=== PATIENT | male | born 1965 | race Caucasian/White ===

== ENCOUNTER → 2018-04-04 | Day surgery (SDC) | payer OTHER ==
[~2018-04-04] MED LIST: ACEBUTOLOL HCL200 MG PO; ADDERALL XR 3030 MG PO; ALBUTEROL1.25 MG/3 NEB; ALLOPURINOL100 MG PO; ASPIR 8181 MG PO; ATORVASTATIN CA10 MG PO; BUPIVACAINE HCL 0.5% INJ 30 ML VIAL INJ ONE; CEFTRIAXONE SOD 1 GM VIAL ONE; DEXAMETHASONE SOD PHOS INJ 4 MG/ML VIAL ONE; FENTANYL CITRATE/PF 100MCG/2 ML INJ ONE; GLYCOPYRROLATE INJ 1MG/ 5 ML SYR ONE; HYDROMORPHONE 2MG/ML 2 MG/ML ML ONE; KETOROLAC TROMETHAMINE 30 MG/ML VIAL ONE; LIDOCAINE HCL 1% 30ML-PF VIAL ONE; LIDOCAINE HCL 2% LOCAL INJ 5 ML SDV VIAL INJ ONE; MICARDIS40 MG PO; MIDAZOLAM HCL 2 MG/2 ML VIAL ONE; ONDANSETRON HCL INJ 2 MG/ML VIAL ONE; PLAVIX75 MG PO; PROPOFOL IV EMULSION 10 MG/ML 20 ML VIAL ONE; SEVOFLURANE INHAL SOLN 250 ML PEN BTL ONE; SYMBICORT 16010.2 GM INH; TRINTELLIX PO; VITAMIN D5000 UNIT PO
--- NOTE | 2018-04-04 15:06 | Operative Report ---
DATE OF PROCEDURE: April 04, 2018 PREOPERATIVE DIAGNOSIS: Bilateral hydroceles. POSTOPERATIVE DIAGNOSIS: Bilateral hydroceles. OPERATION PERFORMED: Bilateral hydrocelectomy. DIETARY ASSISTANT: Dr. Shon Morales ANESTHESIA: General. INDICATIONS: Mr. Inman is a 52-year-old male who presented with bilateral scrotal swelling. Physical exam showed bilateral hydroceles and scrotal ultrasound confirmed it. DETAILS OF PROCEDURE: This patient was placed on the table in the lithotomy position and was prepped and draped in a sterile manner after satisfactory anesthesia. A longitudinal incision over the anterolateral border of the right hemiscrotum incising the skin and the dartos muscle. The tunica vaginalis was then incised and about 250 mL of hydrocele fluid was aspirated. The testicle and the spermatic cord were brought outside the scrotal sac. The tunica vaginalis was then bottle necked behind the spermatic cord and approximated continuously using 3-0 Vicryl. Hemostasis was obtained all through and was very adequate. The testicle and the spermatic cord were then delivered inside the scrotal sac. Attention was now directed to the scrotal closure and the dartos muscle was approximated continuously using 3-0 Vicryl. The skin was approximated interruptedly using 4-0 Vicryl. Attention was not directed to the left scrotal sac and longitudinal incision over the anterolateral border was done. The skin and the dartos muscle was incised. The tunica vaginalis was then incised in the same direction and about 200 mL of hydrocele fluid was recovered. Attention was now directed to the left hydrocelectomy and the tunica vaginalis was then bottle necked behind the spermatic cord and approximated continuously using 3-0 Vicryl. Hemostasis again was very adequate. Attention was not directed to the wound closure and the testicle and the spermatic cord were delivered inside the scrotal sac. The dartos muscle was approximated continuously using 3-0 Vicryl. The skin was approximated interruptedly using 4-0 Vicryl. Sterile dressing was applied. Fluffs were applied and a scrotal support placed. Discharge medication was Augmentin 500 mg one 3 times a day for one week. Ultracet tablet one every 4 hours p.r.n. and was given 40. He was instructed on keeping the ice pack on the scrotum for the next few days. He is to return to the office in about 4 weeks. Job#: [id number] GH
[2018-04-04 17:00] VITALS: BP 148/98
--- OUTSIDE RECORDS SUMMARY | 2018-04-05 17:27 | XMS REPORT | Clinical Summary ---
Author Author [facility] Address Unknown Phone Unavailable Care Team Providers Care Plant And Instrument Engineer Name Role Phone Rory Bradshaw MD PCP Allergies Active Allergy Reactions Severity Noted Date Comments Adhesive Tape-Silicones 08/23/2017 Azithromycin 10/20/2015 Other reaction(s): Angioedema Sulfa (Sulfonamide 08/23/2017 Antibiotics) Current Medications Prescription Sig. Disp. Refills Start End Date Status Date isosorbide mononitrate Take 35 mg by mouth Active (IMDUR) 30 MG 24 hr daily. tablet acebutolol (SECTRAL) 200 Take 200 mg by mouth 10/25/19 Active MG capsule daily. 17 allopurinol (ZYLOPRIM) Take 100 mg by mouth 02/18/20 Active 100 MG tablet daily. 16 clopidogrel (PLAVIX) 75 Take 75 mg by mouth 3 09/13/19 Active mg tablet daily. 17 telmisartan (MICARDIS) 40 Take 40 mg by mouth 1 10/21/19 Active MG tablet daily. 17 aspirin 81 mg chewable Chew 81 mg daily. Active tablet spironolactone Take 25 mg by mouth 3 08/01/19 Active (ALDACTONE) 25 MG tablet daily. 18 losartan (COZAAR) 50 MG every evening. 1 08/02/19 Active tablet 18 SYMBICORT 160-4.5 Inhale 2 puffs 2 (two) 11 08/05/19 Active mcg/actuation inhaler times a day. 18 atorvastatin (LIPITOR) 10 Take 10 mg by mouth 9 07/26/19 Active MG tablet nightly. 18 albuterol (ACCUNEB) 2.5 3 ML NEEDED TWICE A 3 07/27/19 Active mg /3 mL (0.083 %) DAY INHALATION 30 DAYS 18 nebulizer solution calcitriol (ROCALTROL) TAKE 1 CAPSULE BY MOUTH 3 06/30/19 Active 0.25 MCG capsule ON Monday AND Monday. isosorbide dinitrate Take 30 mg by mouth. 08/24/19 Discontin (ISORDIL) 30 MG tablet 18 ued traMADol (ULTRAM) 50 mg Take 1 tablet (50 mg 9 tablet 0 01/13/20 01/20/20 tablet total) by mouth every 6 18 18 (six) hours as needed for severe pain for up to 9 doses. Active Problems Problem Noted Date Chest pain 10/28/2016 Acute bronchitis 10/20/2015 Acute gastritis 10/20/2015 Acute upper respiratory infection 10/20/2015 Chronic kidney disease, stage III (moderate) (HCC) 10/20/2015 Colitis, enteritis, and gastroenteritis of presumed infectious origin 10/20/2015 Nausea 10/20/2015 Abnormal chest x-ray 10/20/2015 Encounters Date Type Specialty Care Team Description 02/21/2018 [facility] Benji Bland, Hydrocele of tunica Encounter MD stevens 02/14/2018 Transcribe Access Benji Bland, Hydrocele of tunica Orders MD stevens (Primary Dx) 01/11/2018 Emergency Emergency Medicine Steve Garcia MD Testicular pain, left - (Primary Dx); 01/12/2018 Hydrocele, unspecified hydrocele type 10/25/2017 Telephone Cardiovascular Elaine Shen MA 08/23/2017 Office Visit Cardiovascular Manish Cruz MD Varicose veins of leg with edema, unspecified laterality (Primary Dx); Venous insufficiency 07/31/2017 Telephone Cardiovascular Ml Mccracken MA 07/11/2017 [facility]iology Taqueria Valdes MD Peripheral venous Encounter insufficiency 07/11/2017 Ancillary Access Taqueria Valdes MD Peripheral venous Orders insufficiency 07/05/2017 Transcribe Access Taqueria Valdes MD Peripheral venous Orders insufficiency (Primary Dx) after 04/04/2017 Immunizations Name Dates Previously Given Next Due Pneumococcal Conjugate 11/01/2016 13-Valent Family History Medical History Relation Name Comments Hypertension Brother Cancer Father Circulation Problems with Father Legs Varicose Veins Father Hypertension Maternal Grandfather Cancer Mother Heart disease Mother Hypertension Mother Hypertension Sister Relation Name Status Comments Brother Father Maternal Grandfather Mother Sister Social History Tobacco Use Types Packs/Day Years Used Date Never Smoker Smokeless Tobacco: Never Used Alcohol Use Drinks/Week oz/Week Comments No Sex Assigned at Date Recorded Not on file Last Filed Vital Signs Vital Sign Reading Time Taken Blood Pressure 117/85 01/12/2018 12:53 AM CDT Pulse 79 01/12/2018 12:53 AM CDT Temperature 36.7 C (98.1 F) 01/12/2018 12:53 AM CDT Respiratory Rate 21 01/12/2018 12:53 AM CDT Oxygen Saturation 97% 01/12/2018 12:53 AM CDT Inhaled Oxygen - - Concentration Weight 96.2 kg (212 lb) 08/23/2017 2:39 PM CDT Height 177.8 cm (5' 10") 01/11/2018 8:23 PM CDT Body Mass Index 30.42 08/23/2017 2:39 PM CDT Plan of Treatment Health Maintenance Due Date Last Done Comments COLON CANCER SCREENING 10/19/2015 SHINGRIX VACCINE (#1) 10/19/2015 INFLUENZA VACCINE 01/10/2018 Implants Implanted Type Area Specialist Icu Device Expiration Model / Identifier Date Serial / Lot Device Vasclr Clsr Baln Cath 10ml Cardiovasc N/A: N/A CARDINAL 09/09/2018 [id number] / Lkng Syr 6fr 7fr [facility] / [id number] Implants [id number] Implanted: 10/31/2016 (Quantity not on file) Procedures Procedure Name Priority Date/Time Associated Diagnosis Comments US SCROTAL Routine 02/21/2018 Hydrocele of tunica Results for this 5:14 PM CDT vaginalis procedure are in the results section. US SCROTAL STAT 01/11/2018 Results for this 10:00 PM CDT procedure are in the results section. URINALYSIS SCREEN AND Routine 01/11/2018 Results for this MICROSCOPY, WITH REFLEX 8:24 PM CDT procedure are in the TO CULTURE results section. URINE CULTURE Routine 01/11/2018 Results for this 8:24 PM CDT procedure are in the results section. US DUPLEX VENOUS LOWER Routine 07/11/2017 Peripheral venous Results for this EXTREMITY REFLUX 2:19 PM WELL REACTIVATOR OPERATOR insufficiency procedure are in the BILATERAL results section. after 04/04/2017 Results * US Scrotal (02/21/2018 5:14 PM) Only the most recent of 2 results within the time period is included. Narrative Performed At EXAMINATION: Testicular ultrasound. [facility] CLINICAL HISTORY:N43.3 Hydroceleunspecified, N43.3 COMPARISON:Scrotal ultrasound 01-11-18 TECHNIQUE:Sonographic evaluation of the scrotum. Real-time B mode grayscale, Doppler spectral analysis and Doppler color flow imaging was used to assess testicular vasculature. FINDINGS: RIGHT HEMISCROTUM: The right testicle measures 4.0 x 4.1 x 2.3 cm. Testicular echogenicity is normal. No intratesticular masses are identified. There is normal color and duplex Doppler flow. The right epididymis is unremarkable. There is no evidence of varicocele. A small/moderate hydrocele is present, unchanged from the prior. The right epididymis measures 1.1 x 1.1 x 0.7 cm LEFT HEMISCROTUM: The left testicle measures 4.2 x 3.4 x 2.3 cm. Testicular echogenicity is normal. There are no intratesticular masses. There is normal color and duplex Doppler flow. A small/moderate hydrocele is present, unchanged from the prior. The left epididymis measures 2.1 x 1.0 x 1.0 cm. There is an 1.8 mm cyst and a 4.3 mm cyst Doppler blood flow is present in both testicles. IMPRESSION: Bilateral hydroceles are unchanged in size from the prior study. The right testicular appendage is not visible on the current exam. [id number] Procedure Note Interface, Radiology Results Incoming - 02/21/2018 6:27 PM CDT EXAMINATION: Testicular ultrasound. CLINICAL HISTORY: N43.3 Hydrocele unspecified, N43.3 COMPARISON: Scrotal ultrasound 01-11-18 TECHNIQUE: Sonographic evaluation of the scrotum. Real-time B mode grayscale, Doppler spectral analysis and Doppler color flow imaging was used to assess testicular vasculature. FINDINGS: RIGHT HEMISCROTUM: The right testicle measures 4.0 x 4.1 x 2.3 cm. Testicular echogenicity is normal. No intratesticular masses are identified. There is normal color and duplex Doppler flow. The right epididymis is unremarkable. There is no evidence of varicocele. A small/moderate hydrocele is present, unchanged from the prior. The right epididymis measures 1.1 x 1.1 x 0.7 cm LEFT HEMISCROTUM: The left testicle measures 4.2 x 3.4 x 2.3 cm. Testicular echogenicity is normal. There are no intratesticular masses. There is normal color and duplex Doppler flow. A small/moderate hydrocele is present, unchanged from the prior. The left epididymis measures 2.1 x 1.0 x 1.0 cm. There is an 1.8 mm cyst and a 4.3 mm cyst Doppler blood flow is present in both testicles. IMPRESSION: Bilateral hydroceles are unchanged in size from the prior study. The right testicular appendage is not visible on the current exam. [facility] [id number] Performing Organization Address City/State/Zipcode Phone Number ERIC [phone] [place] [address] * Urinalysis screen and microscopy, with reflex to culture (01/11/2018 8:24 PM) Specimen site Clean catch [facility] [place] Color, UA Denisse [facility] [place]IC[facility] Appearance, UA Slightly-Cloudy [facility] [place]OM[facility]IC[facility] Specific gravity, UA 1.035 1.001 - 1.035 [facility] [place]OM[facility]IC[facility] pH, UA 5.0 5.0 - 8.5 [facility] [place]OM[facility]IC[facility] Protein, UA 2+ (A) Negative [facility] [place]IC[facility] Glucose, UA Negative Negative [facility] [place]OM[facility]IC[facility] Ketones, UA Trace (A) Negative [facility] [place] [facility]OM[facility]ICINE Bilirubin, UA 1+ (A)Comment: Confirmation of Negative [facility] [place] [facility] results no longer performed PATHOLOGY AND due to unavailability of imageloop MEDICINE reagent Blood, UA Negative Negative [facility] [place] GENOMIC MEDICINE Nitrite, UA Negative Negative [facility] [place] GENOMIC MEDICINE Urobilinogen, UA 4.0 (A) <2.0 [facility] [place]OMIC [facility]IC[facility] Leukocyte esterase, UA Negative Negative [facility] [place] GENOMIC MEDICINE WBC, UA <1 0 - 1 /HPF [facility] [place] [facility] GENOMIC MEDIC[facility] RBC, UA 2 0 - 5 /HPF [facility] [place] [facility]OMIC MEDIC[facility] Bacteria, UA None seen None seen [facility] [place] [facility] GENOMIC MEDICINE Yeast, UA None seen [facility] [place] GENOMIC MEDICINE Yeast with pseudohyphae, None seen [facility] [place] UA PATHOLOGY AND GENOMIC MEDICINE Specimen Urine Performing Organization Address City/State/Zipcode Phone Number [facility] [place] [facility] [address] [place] [address] PATHOLOGY AND GENOMIC MEDICINE * Urine culture (01/11/2018 8:24 PM) Urine culture SEE COMMENTComment: [facility] [place] Bacteriuria screen negative. PATHOLOGY AND GENOMIC MEDICINE Performing Organization Address City/State/Zipcode Phone Number [facility] OF [address] [place] [address] PATHOLOGY AND GENOMIC MEDICINE * Us duplex venous lower extremity reflux (07/11/2017 2:19 PM) Narrative Performed At EXAM:Bilateral lower extremity venous reflux evaluation [facility] HISTORY:Peripheral venous insufficiency. TECHNIQUE:Real-time as well as pulsed and color Doppler evaluation of the deep and superficial system of the right and left legs was performed. There is no prior study available for comparison. COMPARISON: 02/06/2015 IMPRESSION: 1.No deep venous or saphenous vein thrombus is present in either lower extremity. The right and left common femoral, profunda femoral, superficial femoral, popliteal, posterior tibial, peroneal, greater saphenous, and short saphenous veins are patent with no visible thrombus. 2.Varicose veins are seen on the right at the upper, mid and distal calf, and on the left at the popliteal fossa and upper calf. 3.No incompetent director learning and development veins are present in either lower extremity. REFLUX EVALUATION *Abnormal reflux criteria: > or equal to 0.5 seconds DEEP VEINS RIGHT LEG CFV: Normal Femoral:Normal Profunda: Normal Popliteal: Normal PT (prox): Normal PT (dist): Normal LEFT LEG CFV: Incompetent, reflux duration 1.1 seconds. Femoral:Normal Profunda: Normal Popliteal: Incompetent, reflux duration 4.9 seconds. PT (prox): Normal PT (dist): Normal SUPERFICIAL VEINS RIGHT LEG GSV junction: Normal GSV (prox above knee): Incompetent, reflux duration 4.9 seconds GSV (prox below knee): Incompetent, reflux duration 3.5 seconds SSV:Normal LEFT LEG GSV junction: Incompetent, reflux duration 0.9 seconds GSV (prox above knee): Normal GSV (prox below knee): Normal SSV:Normal VEIN MAPPING GSV -- SIZE (mm) -- DEPTH FROM SKIN (mm) RIGHT LEG: Saphenofemoral -- 5.6 -- 19.1 Upper thigh --4.2 -- 7.5 Mid thigh --2.6-- 3.2 Distal thigh --2.8-- 2.2 Knee ---2.8- 2.2 Upper calf --2.5-- 3.2 Mid calf ---- 2.4-- 3.8 Distal calf ---2.1-- 4.0 LEFT LEG: Saphenofemoral -- 6.4 -- 27.7 Upper thigh --2.7-- 9.4 Mid thigh --1.5-- 3.2 Distal thigh --2.3-- 2.4 Knee --2.5-- 5.0 Upper calf -- 1.7-- 4.8 Mid calf --2.2-- 3.2 Distal calf -- 2.2 -- 4.9 SSV -- SIZE (mm) -- DEPTH FROM SKIN (mm) RIGHT LEG: Upper Calf -- 1.6-- 6.6 Mid Calf ---1.0-- 6.0 Distal Calf --1.9-- 4.5 LEFT LEG: Upper Calf --2.5-- 6.9 Mid Calf --2.7-- 6.6 Distal Calf --2.4-- 2.5 [id number] Procedure Note [facility], Radiology Results Incoming - 07/11/2017 4:46 PM WELL REACTIVATOR OPERATOR EXAM: Bilateral lower extremity venous reflux evaluation HISTORY: Peripheral venous insufficiency. TECHNIQUE: Real-time as well as pulsed and color Doppler evaluation of the deep and superficial system of the right and left legs was performed. There is no prior study available for comparison. COMPARISON: 02/06/2015 IMPRESSION: 1. No deep venous or saphenous vein thrombus is present in either lower extremity. The right and left common femoral, profunda femoral, superficial femoral, popliteal, posterior tibial, peroneal, greater saphenous, and short saphenous veins are patent with no visible thrombus. 2. Varicose veins are seen on the right at the upper, mid and distal calf, and on the left at the popliteal fossa and upper calf. 3. No incompetent director learning and development veins are present in either lower extremity. REFLUX EVALUATION *Abnormal reflux criteria: > or equal to 0.5 seconds DEEP VEINS RIGHT LEG CFV: Normal Femoral: Normal Profunda: Normal Popliteal: Normal PT (prox): Normal PT (dist): Normal LEFT LEG CFV: Incompetent, reflux duration 1.1 seconds. Femoral: Normal Profunda: Normal Popliteal: Incompetent, reflux duration 4.9 seconds. PT (prox): Normal PT (dist): Normal SUPERFICIAL VEINS RIGHT LEG GSV junction: Normal GSV (prox above knee): Incompetent, reflux duration 4.9 seconds GSV (prox below knee): Incompetent, reflux duration 3.5 seconds SSV: Normal LEFT LEG GSV junction: Incompetent, reflux duration 0.9 seconds GSV (prox above knee): Normal GSV (prox below knee): Normal SSV: Normal VEIN MAPPING GSV -- SIZE (mm) -- DEPTH FROM SKIN (mm) RIGHT LEG: Saphenofemoral -- 5.6 -- 19.1 Upper thigh -- 4.2 -- 7.5 Mid thigh -- 2.6-- 3.2 Distal thigh -- 2.8-- 2.2 Knee -- -2.8- 2.2 Upper calf -- 2.5-- 3.2 Mid calf -- -- 2.4 -- 3.8 Distal calf -- -2.1-- 4.0 LEFT LEG: Saphenofemoral -- 6.4 -- 27.7 Upper thigh -- 2.7-- 9.4 Mid thigh -- 1.5-- 3.2 Distal thigh -- 2.3-- 2.4 Knee -- 2.5-- 5.0 Upper calf -- 1.7-- 4.8 Mid calf -- 2.2-- 3.2 Distal calf -- 2.2 -- 4.9 SSV -- SIZE (mm) -- DEPTH FROM SKIN (mm) RIGHT LEG: Upper Calf -- 1.6-- 6.6 Mid Calf -- -1.0-- 6.0 Distal Calf -- 1.9-- 4.5 LEFT LEG: Upper Calf -- 2.5-- 6.9 Mid Calf -- 2.7-- 6.6 Distal Calf -- 2.4-- 2.5 [id number] Performing Organization Address City/State/Zipcode Phone Number ERIC [phone] [place] [address] after 04/04/2017 Insurance Payer Benefit Subscriber ID Type Phone Address Plan / Group AETNA AETNA xxxxxxxxxx HMO HMO,POS,EP [place], [place] [address] Home:
== END | disposition home or self-care (01) ==
LOC: OR 09:05
PROVIDERS: ATTEND Specialist
DX: N43.3 Hydrocele, unspecified (principal); E11.22 Type 2 diabetes mellitus with diabetic chronic kidney disease; I12.9 Hypertensive chronic kidney disease with stage 1 through stage 4 chronic kidney disease, or unspecified chronic kidney disease; N18.9 Chronic kidney disease, unspecified; I25.10 Atherosclerotic heart disease of native coronary artery without angina pectoris; Z95.5 Presence of coronary angioplasty implant and graft; E78.5 Hyperlipidemia, unspecified; J45.909 Unspecified asthma, uncomplicated; G47.33 Obstructive sleep apnea (adult) (pediatric); D75.1 Secondary polycythemia; I49.3 Ventricular premature depolarization; E29.1 Testicular hypofunction; F41.9 Anxiety disorder, unspecified; M10.9 Gout, unspecified; M26.609 Unspecified temporomandibular joint disorder, unspecified side; I25.2 Old myocardial infarction; Z79.02 Long term (current) use of antithrombotics/antiplatelets; Z79.82 Long term (current) use of aspirin
CPT/HCPCS: 36415; 55041; 82948; J0696; J1100; J1170; J1885; J2001; J2250; J2405; J2704; J3490